=== PATIENT | female | born 1945 | race Caucasian/White ===

== ENCOUNTER 2024-01-16 14:23 | Inpatient (IN) | payer MEDICARE, OTHER ==
--- NOTE | 2024-01-16 14:55 | ED ---
Recheck HPI - General Chief Complaint: Chest Pain Stated Complaint: fall Time Seen by Provider: 01/16/24 14:31 Source: patient, EMS, RN notes reviewed, old records reviewed Mode of arrival: EMS Limitations: no limitations - History of Present Illness Initial Comments: This is a 78-year-old female who is excepted in transfer from outside facility for pneumothorax secondary to fall fall rib fractures pneumothorax MD Complaint: other (Positive chest tube right chest wall) -: hour(s) Returns Today for: persistent/worsening pain related to initial visit Symptoms Since Prior Visit: worsening pain Associated Symptoms: none Treatments Prior to Arrival: Given Pain Meds on - Related Data Home Medications Medication Instructions Recorded Confirmed Celecoxib [CeleBREX] 200 mg PO DAILY 01/16/24 01/16/24 Furosemide [Lasix] 20 mg PO DAILY 01/16/24 01/16/24 Hydroxyurea [Hydrea] 500 mg PO DAILY 01/16/24 01/16/24 Pantoprazole [Protonix] 40 mg PO DAILY 01/16/24 01/16/24 Verapamil HCl [Verapamil ER] 180 mg PO HS 01/16/24 01/16/24 predniSONE [Deltasone] 10 mg PO DAILY 01/16/24 01/16/24 Allergies Allergy/AdvReac Type Severity Reaction Status Date / Time Quinolones Allergy Rash/Hives Verified 01/16/24 17:12 Sulfa (Sulfonamide Allergy Unknown Verified 01/16/24 17:12 Antibiotics) Childhood Review of Systems ROS Statement: Those systems with pertinent positive or pertinent negative responses have been documented in the HPI. ROS Other: All systems not noted in ROS Statement are negative. Past Medical History Past Medical History: Coronary Artery Disease (CAD), GERD/Reflux, Hyperlipidemia, Hypertension, Osteoarthritis (OA) Additional Past Medical History / Comment(s): thrombocytosis, vitamin D deficiency, History of Any Multi-Drug Resistant Organisms: None Reported Past Surgical History: Hysterectomy Additional Past Surgical History / Comment(s): L breast biopsy 2014, colonoscopy 2014, bowel obstruction surgery 2007 Past Psychological History: No Psychological Hx Reported Smoking Status: Never smoker Past Alcohol Use History: Occasional Past Drug Use History: None Reported General Exam Limitations: no limitations General appearance: alert, in no apparent distress Head exam: Present: atraumatic, normocephalic, normal inspection Eye exam: Present: normal appearance, PERRL, EOMI. Absent: scleral icterus, conjunctival injection, periorbital swelling ENT exam: Present: normal exam, mucous membranes moist Neck exam: Present: normal inspection. Absent: tenderness, meningismus, lymphadenopathy Respiratory exam: Present: normal lung sounds bilaterally. Absent: respiratory distress, wheezes, rales, rhonchi, stridor Cardiovascular Exam: Present: regular rate, normal rhythm, normal heart sounds. Absent: systolic murmur, diastolic murmur, rubs, gallop, clicks GI/Abdominal exam: Present: soft, normal bowel sounds. Absent: distended, tenderness, guarding, rebound, rigid Extremities exam: Present: normal inspection, full ROM, normal capillary refill. Absent: tenderness, pedal edema, joint swelling, calf tenderness Back exam: Present: normal inspection Neurological exam: Present: alert, oriented X3, CN II-XII intact Psychiatric exam: Present: normal affect, normal mood Skin exam: Present: warm, dry, intact, normal color. Absent: rash Course Vital Signs 01/16/24 01/16/24 01/16/24 14:36 15:00 16:00 Temperature 98.0 F Pulse Rate 70 80 73 Pulse Rate [ Pulse Oximetery ] Respiratory 18 14 14 Rate Blood Pressure 156/82 156/82 143/82 Blood Pressure [Left Arm Sitting] O2 Sat by Pulse 96 98 97 Oximetry 01/16/24 01/16/24 01/16/24 17:00 18:00 20:00 Temperature Pulse Rate 71 82 81 Pulse Rate [ Pulse Oximetery ] Respiratory 14 14 16 Rate Blood Pressure 154/81 148/73 147/77 Blood Pressure [Left Arm Sitting] O2 Sat by Pulse 98 97 96 Oximetry 01/17/24 01/17/24 01/17/24 00:00 04:00 06:54 Temperature Pulse Rate 74 79 80 Pulse Rate [ Pulse Oximetery ] Respiratory 16 16 18 Rate Blood Pressure 152/80 147/75 155/82 Blood Pressure [Left Arm Sitting] O2 Sat by Pulse 93 L 94 L 97 Oximetry 01/17/24 01/17/24 01/17/24 08:12 12:45 12:53 Temperature 98.1 F Pulse Rate 88 Pulse Rate [ 101 H 100 Pulse Oximetery ] Respiratory 14 16 16 Rate Blood Pressure 159/85 Blood Pressure 179/82 170/88 [Left Arm Sitting] O2 Sat by Pulse 97 98 98 Oximetry 01/17/24 15:18 Temperature 98.1 F Pulse Rate 82 Pulse Rate [ Pulse Oximetery ] Respiratory 18 Rate Blood Pressure 138/76 Blood Pressure [Left Arm Sitting] O2 Sat by Pulse 95 Oximetry - Reevaluation(s) Reevaluation #1: 01/16/24 17:45 Medical records reviewed Reevaluation #2: 01/16/24 17:45 Patient's in no distress no shortness of breath pain is improved Reevaluation #3: 01/16/24 17:46 Patient informed of results and questions answered Reevaluation #4: Was pt. sent in by a medical professional or institution (, JULIA, INSPECTOR TESTER SORTER, urgent care, hospital, or senior living...) When possible be specific @ -no Did you speak to anyone other than the patient for history (EMS, parent, family, police, friend...)? What history was obtained from this source @ -no Did you review nursing and triage notes (agree or disagree)? Why? @ -agree Are old charts reviewed (outside hosp., previous admission, EMS record, old EKG, old radiological studies, urgent care reports/EKG's, senior living records)? Report findings @ -yes Differential Diagnosis (chest pain, altered mental status, abdominal pain women, abdominal pain men, vaginal bleeding, weakness, fever, dyspnea, syncope, headache, dizziness, GI bleed, back pain, seizure, CVA, palpatations, mental health, musculoskeletal)? @ -prior EKG interpreted by me (3pts min.). @ -yes X-rays interpreted by me (1pt min.). @ -yes positive for good placement of chest tube CT interpreted by me (1pt min.). @ -Yes negative for traumatic injury U/S interpreted by me (1pt. min.). @ -no What testing was considered but not performed or refused? (CT, X-rays, U/S, labs)? Why? @ -none What meds were considered but not given or refused? Why? @ -none Did you discuss the management of the patient with other professionals (professionals i.e. JULIA Cruz, INSPECTOR TE[employer]TER, lab, RT, psych nurse, director social service, operator specialist communications, teacher, hotel security officer, case manager specialist)? Give summary @ -no Was smoking cessation discussed for >3mins.? @ -no Was critical care preformed (if so, how long)? @ -no Were there social determinants of health that impacted care today? How? (Homelessness, low income, unemployed, alcoholism, drug addiction, transportation, low edu. Level, literacy, decrease access to med. care, prison, rehab)? @ -none Was there de-escalation of care discussed even if they declined (Discuss DNR or withdrawal of care, Hospice)? DNR status @ -no What co-morbidities impacted this encounter? (DM, HTN, Smoking, COPD, CAD, Cancer, CVA, ARF, Chemo, Hep., AIDS, mental health diagnosis, sleep apnea, morbid obesity)? @ -none Was patient admitted / discharged? Hospital course, mention meds given and route, prescriptions, significant lab abnormalities, going to OR and other pertinent info. @ - 78 female with traumatic pneumothorax, patient given chest tube and will be admitted for chest tube management admitted Undiagnosed new problem with uncertain prognosis? @ -no Drug Therapy requiring intensive monitoring for toxicity (Heparin, Nitro, Insulin, Cardizem)? @ -no Were any procedures done? @ -no Diagnosis/symptom? @ -Pneumothorax Acute, or Chronic, or Acute on Chronic? @ -Acute Uncomplicated (without systemic symptoms) or Complicated (systemic symptoms)? @ -Complicated Side effects of treatment? @ -no Exacerbation, Progression, or Severe Exacerbation? @ -exacerbation Poses a threat to life or bodily function? How? (Chest pain, USA, OR, pneumonia, PE, COPD, DKA, ARF, appy, cholecystitis, CVA, Diverticulitis, Homicidal, Suicidal, threat to staff... and all critical care pts) @ -yes with significant traumatic pneumothorax Reevaluation #5: Differential Chest Pain: Stable Angina, Unstable Angina, STEMI, NSTEMI Aortic Dissection, Pneumothorax, Musculoskeletal, Esophageal Spasm GERD, Cholecystitis, Pancreatitis, Zoster, this is not meant to be an all-inclusive list. Differential Dyspnea: Coronary syndrome, arrhythmia, tamponade, asthma, COPD, pulmonary embolism, p neumonia, pneumothorax, pulmonary effusion, anaphylaxis, diabetic ketoacidosis, flailed chest, pulmonary contusion, diaphragmatic rupture, anemia, neuromuscular, this is not meant to be an all-inclusive list. - Consultations Consultation #1: Spoke with Dr. Mauro who accepts admission to trauma Medical Decision Making - Medical Decision Making 78 female with traumatic pneumothorax, patient given chest tube and will be admitted for chest tube management - Lab Data Result diagrams: 01/18/24 08:26 01/18/24 08:26 - Radiology Data Radiology results: report reviewed (Chest x-ray shows expanded right-sided pneumothorax with chest tube CT chest 7 pelvis negative for other significant traumatic injury), image reviewed Disposition Clinical Impression: Pneumothorax, Fall, Rib fractures, Traumatic fracture of ribs of right side with pneumothorax Disposition: ADMITTED IP TO THIS [facility] Condition: Good Is patient prescribed a controlled substance at d/c from ED?: No Time of Disposition: 15:30
[2024-01-16] MEDS ORDERED: NALOXONE 0.4 MG/ML 1 ML VIAL IV PRN ×2 (15:48→15:53)
--- NOTE | 2024-01-16 15:48 | XR ---
EXAMINATION TYPE: XR chest 2V DATE OF EXAM: 01/16/2024 3:34 PM COMPARISON: 01/16/2024 CLINICAL INDICATION: Female, 78 years old with history of pigtail catheter rig ht chest placement; [facility] TECHNIQUE: XR chest 2V Frontal and lateral views of the chest. FINDINGS: Lungs/Pleura: There is no evidence of pleural effusion, focal consolidation, or pneumothorax. Pulmonary vascularity: Unremarkable. Heart/mediastinum: Cardiomediastinal silhouette is unremarkable. Musculoskeletal: No acute osseous pathology. Right chest tube without evidence for pneumothorax. IMPRESSION: Right thoracotomy tube without evidence for pneumothorax. [facility], , 01/16/2024 3:46 PM
[2024-01-16] MEDS: SODIUM CHLORIDE 0.9% 1,000 ML IV SCH (16:58)
[2024-01-16] MEDS: ONDANSETRON 4 MG/2 ML VIAL IVP PRN (18:47)
[2024-01-16] MEDS: MORPHINE SULFATE 4 MG/ML SYRINGE IV PRN (18:47)
--- NOTE | 2024-01-16 19:30 | CT ---
EXAMINATION TYPE: CT ChestAbdPelvis w con DATE OF EXAM: 01/16/2024 7:20 PM COMPARISON: None. CLINICAL INDICATION: Female, 78 years old with history of pain, TECHNIQUE: CT imaging performed with sagittal coronal reformats. CT scan of the chest, abdomen and pe lvis is performed without Oral Contrast and with IV Contrast, patient injected with 1100ml mL of Isov ue 300. CT DLP: 819.4 mGycm, Automated exposure control for dose reduction was used. FINDINGS: CT Chest: LUNGS: Sliver of a pneumothorax noted with right-sided chest tube in place. There is small amount of subcutaneous air right chest wall superiorly. Right basilar compressive atelectasis. MEDIASTINUM: Thoracic aorta is of normal caliber. The heart is not enlarged. No evidence for media stinal mass or adenopathy. HILAR STRUCTURES: No evidence for mass. No hilar adenopathy is appreciated. OTHER: No significant abnormality. CONTRAST CT ABDOMEN AND PELVIS FINDINGS: LIVER/GB: No calcified gallstones. No space occupying hepatic lesion. Biliary tree is of normal ca liber. PANCREAS: No inflammation. No distinct mass. SPLEEN: No splenic enlargement. No lesion seen. ADRENALS: Left adrenal mass measuring 2.4 cm with peripheral calcification is nonspecific. Right adre nal gland is unremarkable. KIDNEYS/BLADDER: No hydronephrosis. No nephrolithiasis. 1 cm simple cyst midpole left kidney. BOWEL: Normal appendix. Normal bowel caliber. No inflammation. Moderate to severe fecal stasis thr oughout the colon. GENITAL ORGANS: No gross abnormality. LYMPH NODES: No greater than 1cm abdominal or pelvic lymph nodes are appreciated. AORTA: No significant abnormality. OSSEOUS STRUCTURES: Multilevel degenerative disc space narrowing spondylosis. OTHER: No significant additional abnormality is seen. IMPRESSION: 1. Less than 10% right-sided pneumothorax with chest tube in place and a small amount of subcutaneous emphysema. 2. No evidence for traumatic injury to the chest abdomen or pelvis at this time. [facility], , 01/16/2024 7:27 PM
[2024-01-17 07:14] LABS: Anisocytosis Slight; Basophils % (A) 1 %; Eosinophils # (A) 0.2 k/uL (0-0.7); Eosinophils % (A) 2 %; HCT 36.9 % (34.0-46.0); HGB 11.8 gm/dL (11.4-16.0); Hypochromasia Slight; Lymphocytes # (A) 1.7 k/uL (1.0-4.8); Lymphocytes % (A) 20 %; MCHC 31.9 g/dL (31.0-37.0); MCV 100.2 fL (80.0-100.0); Macrocytosis Slight; Mean Platelet Volume 7.3; Monocytes # (A) 0.6 k/uL (0-1.0); Monocytes % (A) 7 %; Neutrophils % (A) 69 %; Platelet Count 255 k/uL (150-450); RBC 3.68 m/uL (3.80-5.40); RDW 17.8 % (11.5-15.5); WBC 8.7 k/uL (3.8-10.6)
[2024-01-17 07:28] LABS: ALT 17 U/L (4-34); AST 21 U/L (14-36); African American GFR (CKD) 79 (>60 ml/min/1.73 sqM); Albumin 3.1 g/dL (3.5-5.0); Alkaline Phosphatase 61 U/L (38-126); Anion Gap 0 mmol/L; Blood Urea Nitrogen 19 mg/dL (7-17); Calcium 8.4 mg/dL (8.4-10.2); Carbon Dioxide 28 mmol/L (22-30); Chloride 109 mmol/L (98-107); Glucose 71 mg/dL (74-99); Non-African American GFR(CKD) 68 (>60 ml/min/1.73 sqM); Sodium 137 mmol/L (137-145); Total Bilirubin 0.5 mg/dL (0.2-1.3); Total Protein 5.3 g/dL (6.3-8.2)
--- NOTE | 2024-01-17 07:46 | XR ---
EXAMINATION TYPE: XR chest 1V portable DATE OF EXAM: 01/17/2024 CLINICAL HISTORY: Difficulty breathing progress study. TECHNIQUE: Single AP portable upright view of the chest is obtained. COMPARISON: Chest x-ray from one day earlier FINDINGS: Right-sided pleural catheter is in place. No evidence for sizable pneumothorax. Cutaneous air overlies the upper right chest. The lungs are hyperinflated compatible with COPD. Cardiomediastin al silhouette is unremarkable. IMPRESSION: Overall stable findings, [facility], , 01/17/2024 7:44 AM
[2024-01-17] MEDS: HYDROXYUREA 500 MG CAP PO SCH (09:01)
[2024-01-17] MEDS: PANTOPRAZOLE 40 MG TABLET PO SCH (09:03)
[2024-01-17] MEDS: FUROSEMIDE 20 MG TAB PO SCH (09:03)
[2024-01-17] MEDS: VERAPAMIL SR 180 MG TABLET.ER PO SCH (09:03)
[2024-01-17] MEDS: MELOXICAM 7.5 MG TAB PO SCH (09:12)
[2024-01-17 09:47] LABS: Glucose,Whole Blood 79 mg/dL (70-110)
--- NOTE | 2024-01-17 09:48 | P.CONS ---
History of Present Illness - Reason for Consult Consult date: 01/17/24 Medical management Requesting physician: Nilesh Hernandez - Chief Complaint syncope/vasovagal episode - History of Present Illness History of Presenting Illness: Patient is a very pleasant 78-year-old female with a past medical history of CAD, hypertension, hyperlipidemia, and GERD. She was transferred to our facility from [facility] after reports of fall at home injuring the side of her chest. Patient states she was lying in bed and had some acid reflux and felt nauseous so got up to use the restroom because she felt as though she had to vomit but became diaphoretic falling over hitting the right side of her chest on the shelf. Patient was taken to [facility] where she underwent evaluation and was found to have a right-sided pneumothorax. A right sided chest tube was placed and patient was transferred to our facility and admitted under trauma surgery team with consults to pulmonary for management of chest tube and we were consulted for medical management throughout hospitalization. Arrival to our facility, patient underwent evaluation in the emergency department. Vital signs upon arrival show blood pressure 156/82, heart rate 70, respiratory rate 18, temp 98.0 F, and SpO2 of 96% on room air. Chest x-ray co mpleted showing right thoracotomy tube without evidence of pneumothorax. CT chest abdomen and pelvis showing less than 10% right-sided pneumothorax with chest tube in place and small amount of subcutaneous emphysema and no evidence for traumatic injury to the chest, abdomen, or pelvis at this time. Review of systems: Pertinent positives and negatives as discussed in HPI, a complete review of sy stems was performed and all other systems are negative. Physical exam: Vital signs reviewed and stable. General: Nontoxic, no distress and appears stated age. Derm: Skin warm and dry, normal coloration for ethnicity. Head: Atraumatic, normocephalic and symmetric. Eyes: EOM's intact, no lid lag, and anicteric sclera Mouth: no lip lesions, mucus membranes moist Cardiovascular: regular rate and rhythm with normal S1S2, no murmur, positive posterior tibial pulses bilaterally, and cap refill < 2 seconds. Right sided small bore chest tube in place. Lungs: Respirations even, regular, and unlabored on room air. Lungs CTA bilaterally, no rhonchi, no rales, no wheezing, and no accessory muscle usage. Abdominal: soft, nontender to palpation, no guarding, no appreciable organomegaly Ext: ROM intact. No gross muscle atrophy, no edema, no contractures Neuro: Speech clear, face symmetrical and CN II-XII grossly intact with no noted focal neuro deficits Psych: Alert and oriented to person, place, time, and situation. Appropriate and pleasant affect. Assessment and Plan of Care: Vasovagal episode versus syncope -Initially patient presentation appears to be secondary to vasovagal episode, however patient's daughters later notifying staff that patient has had 4 episodes of syncope and was evaluated by Dr. Ly where she underwent event monitor and was called twice for an abnormal rhythm, patient and family unsure of what the rhythm was. -Patient to remain on telemetry monitoring. -Consult placed to cardiology for evaluation secondary to reports of recurrent syncopal episodes. -Fall precautions to be maintained. Pneumothorax, right-sided -Pulmonology following managing chest tube. -Repeat morning chest x-ray showing overall stable examination with right pleural catheter in place with no sizable pneumothorax. -Encourage use of incentive spirometer 10-15 times hourly while awake. CAD Hypertension Hyperlipidemia -Continue daily medication regimen with Lasix 20 mg daily and verapamil 180 mg nightly. GERD -Continue daily medication regimen with Protonix 40 mg daily. History of bone marrow cancer -Continue hydroxyurea 500 mg daily. Data and imaging reviewed: -As stated above Thank you for allowing us to participate in the care of this pleasant patient. Do not hesitate to contact us with questions. Someone can be [facility] all hours of the day at [phone] or via [employer]. Patient was seen independently by Nurse Practitioner. This document was prepared using [employer] dictation software. Please allow for errors in motors and generators inspector while rare they do occur. Shan Dhaliwal NP rendered care for this patient independently, reviewed the findings and plan as documented in the note above and agree with plan. I did n ot physically speak with or examine the patient on this date. Past Medical History Past Medical History: Coronary Artery Disease (CAD), GERD/Reflux, Hyperlipidemia, Hypertension, Osteoarthritis (OA) Additional Past Medical History / Comment(s): thrombocytosis, vitamin D deficiency, History of Any Multi-Drug Resistant Organisms: None Reported Past Surgical History: Hysterectomy Additional Past Surgical History / Comment(s): L breast biopsy 2014, colonoscopy 2014, bowel obstruction surgery 2007 Past Psychological History: No Psychological Hx Reported Smoking Status: Never smoker Past Alcohol Use History: Occasional Past Drug Use History: None Reported Medications and Allergies Home Medications Medication Instructions Recorded Confirmed Type Celecoxib [CeleBREX] 200 mg PO DAILY 01/16/24 01/16/24 History Furosemide [Lasix] 20 mg PO DAILY 01/16/24 01/16/24 History Hydroxyurea [Hydrea] 500 mg PO DAILY 01/16/24 01/16/24 History Pantoprazole [Protonix] 40 mg PO DAILY 01/16/24 01/16/24 History Verapamil HCl [Verapamil ER] 180 mg PO HS 01/16/24 01/16/24 History predniSONE [Deltasone] 10 mg PO DAILY 01/16/24 01/16/24 History Allergies Allergy/AdvReac Type Severity Reaction Status Date / Time Quinolones Allergy Rash/Hives Verified 01/16/24 17:12 Sulfa (Sulfonamide Allergy Unknown Verified 01/16/24 17:12 Antibiotics) Childhood Physical Exam Vitals: Vital Signs Temp Pulse Resp BP Pulse Ox 01/17/24 06:54 80 18 155/82 97 01/17/24 04:00 79 16 147/75 94 L 01/17/24 00:00 74 16 152/80 93 L 01/16/24 20:00 81 16 147/77 96 01/16/24 18:00 82 14 148/73 97 01/16/24 17:00 71 14 154/81 98 01/16/24 16:00 73 14 143/82 97 01/16/24 15:00 80 14 156/82 98 01/16/24 14:36 98.0 F 70 18 156/82 96 Results CBC & Chem 7: 01/17/24 06:52 01/17/24 06:52 Labs: Abnormal Lab Results - Last 24 Hours (Table) 01/17/24 Range/Units 06:52 RBC 3.68 L (3.80-5.40) m/uL MCV 100.2 H (80.0-100.0) fL RDW 17.8 H (11.5-15.5) %
[2024-01-17] MEDS: DEXTROSE 50% SYRINGE 50 ML IVP STA (10:32)
[2024-01-17] MEDS ORDERED: HYDROcodone/APAP 5-325MG 1 EACH TAB PO PRN (11:31)
--- NOTE | 2024-01-17 11:33 | P.GSHP ---
History of Present Illness H&P Date: 01/17/24 CHIEF COMPLAINT: Syncopal episode with fall and pneumothorax HISTORY OF PRESENT ILLNESS: This is a 78-year-old female who was a transfer from [place] to be evaluated by trauma service in regards to right traumatic pneumothorax. Patient had a syncopal episode in her bathroom. Patient reports that she was in the bathroom felt nauseous and thought she was going to be sick and passed out. She fell landing on the right side of her ribs. She is unsure of what she hit the right rib cage on. She was passed out for a few seconds. But did have severe right-sided rib/chest pain. She was found to have evidence of a right-sided pneumothorax at [place] and did require a chest tube to be placed. CT scan of chest abdomen and pelvis reported less than 10% right-sided pneumothorax with chest tube in place and a small amount of subcutaneous emphysema. No evidence for traumatic injury to the chest abdomen or pelvis per CT. Patient reports having significant pain. The morphine does help. She denies any new areas of pain. She denies being on any blood thinners. PAST MEDICAL HISTORY: See below PAST SURGICAL HISTORY: See below MEDICATIONS: See below ALLERGIES: See below SOCIAL HISTORY: No illicit drug use. REVIEW OF SYSTEMS: CONSTITUTIONAL: Denies fever or chills. HEENT: Denies blurred vision, vision changes, or eye pain. Denies hemoptysis CARDIOVASCULAR: Denies chest pain or pressure. RESPIRATORY: No shortness of breath. GASTROINTESTINAL: See HPI for pertinent findings HEMATOLOGIC: Denies bleeding disorders. GENITOURINARY: Denies any blood in urine or increased urinary frequency. SKIN: Denies pruitis. Denies rash. PHYSICAL EXAM: VITAL SIGNS: Reviewed GENERAL: Well-developed in no acute distress. HEENT: No sclera icterus. Extraocular movements grossly intact. Moist buccal mucosa. Head is atraumatic, normocephalic. No nasal drainage. Chest: No use of american indian policy specialist muscles. On room air. Chest tube noted on the right side of the chest. There is some bruising noted. ABDOMEN: Soft. Nondistended. Nontender NEUROLOGIC: Alert and oriented. Cranial nerves II through XII grossly intact. Extremities: Able to move all 4 extremities LABORATORY DATA: WBC 8.7 Hgb 11.8 platelets 255 Sodium 137 potassium 4.0 creatinine 0.82 IMAGING: CT scan chest abdomen pelvis reports less than a 10% right-sided pneumothorax with chest tube in place and a small amount of subcutaneous emphysema. No evidence for traumatic injury to chest abdomen or pelvis. Chest x-ray for this morning reports stable findings. No evidence for sizable pneumothorax. Cutaneous air overlies right upper chest. ASSESSMENT: 1. Syncopal episode with fall and right sided traumatic pneumothorax. Status post chest tube placement PLAN: -Encourage patient to use incentive spirometer -pulmonary service consulted for pneumothorax and chest tube management -Medical service consulted for medical management -Pain service on consult -Add [place] for pain management -Service Protonix and DVT prophylaxis subcu heparin Physician Neon Installer note has been reviewed by physician. Signing provider agrees with the documented findings, assessment, and plan of care. I have personally seen and examined the patient, reviewed the CLIENT RELATION SPECIALIST /PAs history, exam and MDM and agree with the assessment and plan as written. Based on total visit time, I have performed more than 50% of the visit. As above: Studies from outside institution noted. Chest tube in good position. Pneumothorax no longer present on follow-up imaging. Keep tube in place for today. Possible removal tomorrow. Past Medical History Past Medical History: Coronary Artery Disease (CAD), GERD/Reflux, Hyperlipidemia, Hypertension, Osteoarthritis (OA) Additional Past Medical History / Comment(s): thrombocytosis, vitamin D deficiency, History of Any Multi-Drug Resistant Organisms: None Reported Past Surgical History: Hysterectomy Additional Past Surgical History / Comment(s): L breast biopsy 2014, colonoscopy 2014, bowel obstruction surgery 2007 Past Psychological History: No Psychological Hx Reported Smoking Status: Never smoker Past Alcohol Use History: Occasional Past Drug Use History: None Reported Medications and Allergies Home Medications Medication Instructions Recorded Confirmed Type Celecoxib [CeleBREX] 200 mg PO DAILY 01/16/24 01/16/24 History Furosemide [Lasix] 20 mg PO DAILY 01/16/24 01/16/24 History Hydroxyurea [Hydrea] 500 mg PO DAILY 01/16/24 01/16/24 History Pantoprazole [Protonix] 40 mg PO DAILY 01/16/24 01/16/24 History Verapamil HCl [Verapamil ER] 180 mg PO HS 01/16/24 01/16/24 History predniSONE [Deltasone] 10 mg PO DAILY 01/16/24 01/16/24 History Allergies Allergy/AdvReac Type Severity Reaction Status Date / Time Quinolones Allergy Rash/Hives Verified 01/16/24 17:12 Sulfa (Sulfonamide Allergy Unknown Verified 01/16/24 17:12 Antibiotics) Childhood Surgical - Exam Vital Signs Temp Pulse Resp BP Pulse Ox 98.0 F 70 18 156/82 96 01/16/24 14:36 01/16/24 14:36 01/16/24 14:36 01/16/24 14:36 01/16/24 14:36 Results - Labs 01/17/24 06:52 01/17/24 06:52 Abnormal Lab Results - Last 24 Hours (Table) 01/17/24 01/17/24 Range/Units 06:52 06:52 RBC 3.68 L (3.80-5.40) m/uL MCV 100.2 H (80.0-100.0) fL RDW 17.8 H (11.5-15.5) % Chloride 109 H (98-107) mmol/L BUN 19 H (7-17) mg/dL Glucose 71 L (74-99) mg/dL Total Protein 5.3 L (6.3-8.2) g/dL Albumin 3.1 L (3.5-5.0) g/dL Diabetes panel 01/17/24 Range/Units 06:52 Sodium 137 (137-145) mmol/L Potassium 4.0 (3.5-5.1) mmol/L Chloride 109 H (98-107) mmol/L Carbon Dioxide 28 (22-30) mmol/L BUN 19 H (7-17) mg/dL Creatinine 0.82 (0.52-1.04) mg/dL Glucose 71 L (74-99) mg/dL Calcium 8.4 (8.4-10.2) mg/dL AST 21 (14-36) U/L ALT 17 (4-34) U/L Alkaline Phosphatase 61 (38-126) U/L Total Protein 5.3 L (6.3-8.2) g/dL Albumin 3.1 L (3.5-5.0) g/dL Calcium panel 01/17/24 Range/Units 06:52 Calcium 8.4 (8.4-10.2) mg/dL Albumin 3.1 L (3.5-5.0) g/dL Pituitary panel 01/17/24 Range/Units 06:52 Sodium 137 (137-145) mmol/L Potassium 4.0 (3.5-5.1) mmol/L Chloride 109 H (98-107) mmol/L Carbon Dioxide 28 (22-30) mmol/L BUN 19 H (7-17) mg/dL Creatinine 0.82 (0.52-1.04) mg/dL Glucose 71 L (74-99) mg/dL Calcium 8.4 (8.4-10.2) mg/dL Adrenal panel 01/17/24 Range/Units 06:52 Sodium 137 (137-145) mmol/L Potassium 4.0 (3.5-5.1) mmol/L Chloride 109 H (98-107) mmol/L Carbon Dioxide 28 (22-30) mmol/L BUN 19 H (7-17) mg/dL Creatinine 0.82 (0.52-1.04) mg/dL Glucose 71 L (74-99) mg/dL Calcium 8.4 (8.4-10.2) mg/dL Total Bilirubin 0.5 (0.2-1.3) mg/dL AST 21 (14-36) U/L ALT 17 (4-34) U/L Alkaline Phosphatase 61 (38-126) U/L Total Protein 5.3 L (6.3-8.2) g/dL Albumin 3.1 L (3.5-5.0) g/dL
--- NOTE | 2024-01-17 12:27 | XR ---
EXAMINATION TYPE: XR chest 1V portable DATE OF EXAM: 01/17/2024 12:22 PM COMPARISON: Chest radiographs from 01/17/2024, CT chest abdomen pelvis 01/16/2024 TECHNIQUE: XR chest 1V portable Portable AP radiograph of the chest. CLINICAL INDICATION:Female, 78 years old with history of Pneumothorax, right; FINDINGS: Lungs/Pleura: There is no evidence of pleural effusion or focal consolidation. No sizable pneumothora x. Bibasilar subsegmental atelectasis. Pulmonary vascularity: Unremarkable. Heart/mediastinum: Cardiomediastinal silhouette is unremarkable. Musculoskeletal: Multiple level degenerative disc disease changes seen throughout the spine. Other findings: None Lines/Tubes: Right-sided pleural catheter in place. IMPRESSION: Overall stable examination with right pleural catheter in place. No sizable pneumothorax. [facility], , 01/17/2024 12:25 PM
--- NOTE | 2024-01-17 12:41 | P.CNPUL ---
History of Present Illness Consult date: 01/17/24 Requesting physician: Nilesh Hernandez Reason for consult: dyspnea, chest pain, pneumothorax, abnormal CXR/CT Chief complaint: Status post fall, pneumothorax. History of present illness: Pulmonary consult dated January 17, 2024. 78-year-old female who was seen in the emergency department, room 1. The patient was transferred down from [facility]. She apparently fell at home, injuring her right chest area. She went to the hospital, was found to have a pneumothorax, and the patient had a small bore chest tube placed and, with a Heimlich valve. We are asked to see the patient. The patient is doing relatively well. She is on room air. She does have a history of hypertension, acid reflux disease, arthritis, and bone marrow cancer. A small bore right- sided chest tube was noted, connected to a Heimlich valve. The patient had a repeat chest x-ray in July, showing a small right apical pneumothorax. The patient is pretty much asymptomatic. White count 8.7, hemoglobin 11.8, macro 36.9, platelet count 2 55,000. Sodium 137, potassium 4, chlorides 109, CO2 28, BUN 19, creatinine 0.82. Glucose is 79. Albumin 3.1. Chest x-ray from earlier today, CT scan, and more recent chest x-ray, done at noon, are reviewed. Review of Systems REVIEW OF SYSTEMS: CONSTITUTIONAL: [Negative.] NEUROLOGIC: [ Negative.] HEENT: [ Negative.] CARDIAC: [Negative.] PULMONARY: Right chest discomfort. GI: [Negative.] : [Negative.] RHEUMATOLOGIC: [ Negative.] IMMUNOLOGIC: [ Negative.] ENDOCRINE: [Negative. ] DERMATOLOGIC: [Negative.] Past Medical History Past Medical History: Coronary Artery Disease (CAD), GERD/Reflux, Hyperlipidemia, Hypertension, Osteoarthritis (OA) Additional Past Medical History / Comment(s): thrombocytosis, vitamin D deficiency, History of Any Multi-Drug Resistant Organisms: None Reported Past Surgical History: Hysterectomy Additional Past Surgical History / Comment(s): L breast biopsy 2014, colonoscopy 2014, bowel obstruction surgery 2007 Past Psychological History: No Psychological Hx Reported Smoking Status: Never smoker Past Alcohol Use History: Occasional Past Drug Use History: None Reported Medications and Allergies Home Medications Medication Instructions Recorded Confirmed Type Celecoxib [CeleBREX] 200 mg PO DAILY 01/16/24 01/16/24 History Furosemide [Lasix] 20 mg PO DAILY 01/16/24 01/16/24 History Hydroxyurea [Hydrea] 500 mg PO DAILY 01/16/24 01/16/24 History Pantoprazole [Protonix] 40 mg PO DAILY 01/16/24 01/16/24 History Verapamil HCl [Verapamil ER] 180 mg PO HS 01/16/24 01/16/24 History predniSONE [Deltasone] 10 mg PO DAILY 01/16/24 01/16/24 History Allergies Allergy/AdvReac Type Severity Reaction Status Date / Time Quinolones Allergy Rash/Hives Verified 01/16/24 17:12 Sulfa (Sulfonamide Allergy Unknown Verified 01/16/24 17:12 Antibiotics) Childhood Physical Exam Osteopathic Statement: *. No significant issues noted on an osteopathic structural exam other than those noted in the History and Physical/Consult. Vitals: Vital Signs Temp Pulse Resp BP Pulse Ox 01/17/24 08:12 98.1 F 88 14 159/85 97 01/17/24 06:54 80 18 155/82 97 01/17/24 04:00 79 16 147/75 94 L 01/17/24 00:00 74 16 152/80 93 L 01/16/24 20:00 81 16 147/77 96 01/16/24 18:00 82 14 148/73 97 01/16/24 17:00 71 14 154/81 98 01/16/24 16:00 73 14 143/82 97 01/16/24 15:00 80 14 156/82 98 01/16/24 14:36 98.0 F 70 18 156/82 96 No acute distress, oriented 3. Currently on room air. HEENT examination is grossly unremarkable. Mucous membranes are moist. No oral lesions. Neck supple. Full range of motion. No adenopathy thyromegaly or neck vein distention. Cardiovascular examination reveals regular rhythm rate. S1-S2 normal. No S3 or S4. No discernible murmur noted. Lungs reveal clear breath sounds. Breath sounds are equal bilaterally. No adventitious lung sounds including wheezes rhonchi or crackles. Small bore right sided chest tube was noted, connected to Heimlich valve. Abdomen soft bowel sounds are heard. No masses or tenderness. Extremities are intact. No cyanosis clubbing or edema. Skin is without rash or lesion. Neurologic examination is brief but nonfocal. Results - Laboratory Findings CBC and BMP: 01/17/24 06:52 01/17/24 06:52 Abnormal lab findings: Abnormal Labs 01/17/24 01/17/24 06:52 06:52 RBC 3.68 L MCV 100.2 H RDW 17.8 H Chloride 109 H BUN 19 H Glucose 71 L Total Protein 5.3 L Albumin 3.1 L - Diagnostic Findings Chest x-ray: image reviewed CT scan - chest: image reviewed Assessment and Plan Assessment: S/P fall, with right sided pneumothorax, S/P smallbore chest tube placement, connected to a Heimlich valve. History of hypertension. History of degenerative joint disease. History of GERD. History of bone cancer. Plan: Plan dated January 17, 2024. The patient is seen today and ER, room #1. The patient has a small bore chest tube placed, on the right side. It is connected to a Heimlich valve. Clinically, the patient appears relatively stable. She is on room air. Repeat chest x-ray will be done at noon. Additional recommendations and suggestions are forthcoming. Labs, x-rays, and all medications are reviewed. Prognosis is thought to be generally good. Time with Patient: Greater than 30
--- NOTE | 2024-01-17 12:58 | P.PCN ---
Description of Procedure: Preprocedure diagnosis. Right chest wall pain. Postprocedure diagnosis. As above. Procedure done. Right erector spine block with local anesthetics under ultrasound guidance. Blood loss. None. Indication. I was consulted by ER physician for pain control of this 78-year-old lady who had a fall pneumothorax, chest tube put in. Significant pain, inadequate control in the right chest area. On physical examination significant tenderness near the posterior angle of the ribs 10 and 11 on the right side area. Discussed the procedure, alternatives, possible complications which may include infection bleeding, nerve damage, pneumothorax. Patient understands and all questions were answered. Procedure note. After getting consent patient in sitting position back prepped with chlorhexidine and draped in sterile fashion most tender point levels identified which is around T10-T11 level. With ultrasound ribs, transverse process of T10 was identified with ultrasound, straight probe. 21-gauge pejunk needle attached to a syringe was introduced under sound guidance. Negative aspiration, with aliquots of 5 cc, in between negative aspiration, total 20 cc of 0.5% ropivacaine mixed with 5 mg of dexamethasone given. paJunk needle was taken out. Band-Aid was placed at the puncture site. Disposition. Patient tolerated the procedure well. No complication. Already has started to get improvement of her pain. Patient's care was handed over in ER.
[2024-01-17 13:34] LABS: Glucose,Whole Blood 95 mg/dL (70-110)
[2024-01-17 16:56] VITALS: RESP 16
[2024-01-17] MEDS: HEPARIN SODIUM,PORCINE 5,000 UNIT/ML 1 ML VIAL SQ SCH (21:05)
--- NOTE | 2024-01-18 07:51 | XR ---
EXAMINATION TYPE: XR chest 1V portable DATE OF EXAM: 01/18/2024 COMPARISON: 01/17/2024 HISTORY: Pneumothorax TECHNIQUE: Single frontal view of the chest is obtained. FINDINGS: There is a pleural space pigtail catheter in the right lung unchanged in position. There is no pneumo thorax. The lungs are clear. There is no pleural effusion. The heart and pulmonary vasculature are normal. The osseous structures are intact IMPRESSION: No change in the pleural catheter on the right. There is no pneumothorax. There is no ac [place] cardiopulmonary disease. [facility], , 01/18/2024 7:48 AM
[2024-01-18 08:32] VITALS: BP 159/78; PULSE 93; TEMP 98.3
[2024-01-18 09:17] LABS: Anisocytosis Slight; HGB 12.7 gm/dL (11.4-16.0); Hypochromasia Slight; MCH 31.2 pg (25.0-35.0); MCHC 30.9 g/dL (31.0-37.0); MCV 100.9 fL (80.0-100.0); Macrocytosis Slight; Mean Platelet Volume 7.5; Platelet Count 308 k/uL (150-450); RBC 4.06 m/uL (3.80-5.40); RDW 17.3 % (11.5-15.5); WBC 14.2 k/uL (3.8-10.6)
[2024-01-18 09:29] LABS: African American GFR (CKD) 73 (>60 ml/min/1.73 sqM); Anion Gap 9 mmol/L; Blood Urea Nitrogen 26 mg/dL (7-17); Calcium 9.6 mg/dL (8.4-10.2); Carbon Dioxide 27 mmol/L (22-30); Chloride 103 mmol/L (98-107); Glucose 195 mg/dL (74-99); Magnesium 2.3 mg/dL (1.6-2.3); Non-African American GFR(CKD) 64 (>60 ml/min/1.73 sqM); Sodium 139 mmol/L (137-145)
--- NOTE | 2024-01-18 10:41 | XR ---
EXAMINATION TYPE: XR chest 2V DATE OF EXAM: 01/18/2024 CLINICAL HISTORY: Post chest tube removal TECHNIQUE: Frontal and lateral views of the chest are obtained. COMPARISON: Same day FINDINGS: Right-sided chest tube has been removed. Sizable pneumothorax is not visible. Scattered sen escent parenchymal changes noted. There is no focal air space opacity, pleural effusion, or pneumotho rax seen. The cardiac silhouette size is within normal limits. The osseous structures are intact. IMPRESSION: Right-sided chest tube has been removed. Sizable pneumothorax is not visible. [facility], , 01/18/2024 10:38 AM
--- NOTE | 2024-01-18 10:42 | P.PN ---
Subjective Progress Note Date: 01/18/24 Principal diagnosis: Chest trauma. Pulmonary consult dated January 17, 2024. 78-year-old female who was seen in the emergency department, room 1. The patient was transferred down from [facility], [place]. She apparently fell at home, injuring her right chest area. She went to the hospital, was found to have a pneumothorax, and the patient had a small bore chest tube placed and, with a Heimlich valve. We are asked to see the patient. The patient is doing relatively well. She is on room air. She does have a history of hypertension, acid reflux disease, arthritis, and bone marrow cancer. A small bore right- sided chest tube was noted, connected to a Heimlich valve. The patient had a repeat chest x-ray in July, showing a small right apical pneumothorax. The pat ient is pretty much asymptomatic. White count 8.7, hemoglobin 11.8, macro 36.9, platelet count 2 55,000. Sodium 137, potassium 4, chlorides 109, CO2 28, BUN 19, creatinine 0.82. Glucose is 79. Albumin 3.1. Chest x-ray from earlier today, CT scan, and more recent chest x-ray, done at noon, are reviewed. Progress note dated January 18, 2024. The patient is seen today in room 352. She is on room air. No IV fluids. The chest x-ray this morning, showed no evidence of a right sided pneumothorax. Her small pigtail catheter has been removed. A repeat chest x-ray was ordered. Clinically, the patient is stable, and wishes to be discharged. Current laboratory data includes a white count 14.2, hemoglobin 12.7, macro 41, and a platelet count of 208,000. Sodium 139, potassium 4, chlorides 103, CO2 27, BUN 26, and creatinine 0.87. Glucose is 195. Objective - Vital Signs Vital signs: Vital Signs Temp 98.3 F 01/18/24 08:31 Pulse 93 01/18/24 08:35 Resp 16 01/18/24 08:35 BP 159/78 01/18/24 08:31 Pulse Ox 99 01/18/24 08:31 FiO2 Intake & Output 01/17/24 01/18/24 01/18/24 18:59 06:59 18:59 Intake Total 118 120 Output Total 0 Balance 118 120 Weight 60.328 kg 60 kg Intake: Oral 118 120 Output: Gastric Drainage 0 Urine 0 Stool 0 Urine/Stool Mix 0 Emesis 0 Oral Regurgitation 0 Other 0 Other: Voiding Method Toilet Toilet # Voids 1 2 0 # Bowel Movements 0 - Exam No acute distress, oriented 3. HEENT examination is grossly unremarkable. Mucous membranes are moist. No oral lesions. Neck supple. Full range of motion. No adenopathy thyromegaly or neck vein distention. Cardiovascular examination reveals regular rhythm rate. S1-S2 normal. No S3 or S4. No discernible murmur noted. Lungs reveal clear breath sounds. Breath sounds are equal bilaterally. No adventitious lung sounds including wheezes rhonchi or crackles. Abdomen soft bowel sounds are heard. No masses or tenderness. Extremities are intact. No cyanosis clubbing or edema. Skin is without rash or lesion. Neurologic examination is brief but nonfocal. - Labs CBC & Chem 7: 01/18/24 08:26 01/18/24 08:26 Labs: Abnormal Lab Results - Last 24 Hours (Table) 01/18/24 01/18/24 Range/Units 08:26 08:26 WBC 14.2 H (3.8-10.6) k/uL MCV 100.9 H (80.0-100.0) fL MCHC 30.9 L (31.0-37.0) g/dL RDW 17.3 H (11.5-15.5) % BUN 26 H (7-17) mg/dL Glucose 195 H (74-99) mg/dL Assessment and Plan Assessment: S/P fall, with right sided pneumothorax, S/P smallbore chest tube placement, connected to a Heimlich valve. History of hypertension. History of degenerative joint disease. History of GERD. History of bone cancer. Plan: Plan dated January 17, 2024. The patient is seen today and ER, room #1. The patient has a small bore chest tube placed, on the right side. It is connected to a Heimlich valve. Clinically, the patient appears relatively stable. She is on room air. Repeat chest x-ray will be done at noon. Additional recommendations and suggestions are forthcoming. Labs, x-rays, and all medications are reviewed. Prognosis is thought to be generally good. Plan dated January 18, 2024. This morning's chest x-ray did not reveal pneumothorax. The pigtail catheter on the right side has been removed. The removal was uneventful. Repeat chest x- ray is ordered. If the chest x-ray does not show pneumothorax, the patient can be discharged. No follow-up is necessary. We will continue to follow patient, should she not be discharged. Labs, x-rays, and all medications are reviewed. Dictation was produced using [employer] dictation software. Please excuse any grammatical, word or spelling errors. Time with Patient: Less than 30
--- NOTE | 2024-01-18 10:51 | P.DS ---
Providers Date of admission: 01/16/24 15:49 Expected date of discharge: 01/18/24 Attending physician: Nilesh Hernandez Consults: 01/16/24 15:48 Consult Physician Routine Consulting Provider: Justin Contreras Consult Reason/Comments: ptx,chest tube Do you want consulting provider notified?: Yes 01/16/24 15:49 Consult Physician Routine Consulting Provider: Joy Pineda Consult Reason/Comments: medmanage Do you want consulting provider notified?: Yes 01/16/24 15:54 Consult Physician Routine Consulting Provider: [facility] Consult Reason/Comments: Pulmonary Contusion Do you want consulting provider notified?: Yes 01/17/24 17:17 Consult Physician Routine Consulting Provider: Nilo Warner Consult Reason/Comments: syncope follows Dr. Foley and has hx of abnormal finding on event monitor Do you want consulting provider notified?: Yes Primary care physician: Yanna Mccormack MD Hospital Course: Patient was transferred to our hospital because of pneumothorax after fall. No obvious rib fractures. She is doing well today. She is very anxious to go home today. On arrival patient had a thoracostomy tube in place. This was removed today. Repeat chest x-ray shows no pneumothorax. She is been cleared for discharge by pulmonary. They are not recommending follow-up chest x-ray. Will plan discharge. Recommend follow-up with her primary care team. Patient Condition at Discharge: Good Plan - Discharge Summary Discharge Rx Participant: No New Discharge Prescriptions: No Action Verapamil HCl [Verapamil ER] 180 mg PO HS Pantoprazole [Protonix] 40 mg PO DAILY Furosemide [Lasix] 20 mg PO DAILY Celecoxib [CeleBREX] 200 mg PO DAILY predniSONE [Deltasone] 10 mg PO DAILY Hydroxyurea [Hydrea] 500 mg PO DAILY Discharge Medication List Celecoxib [CeleBREX] 200 mg PO DAILY 01/16/24 [History] Furosemide [Lasix] 20 mg PO DAILY 01/16/24 [History] Hydroxyurea [Hydrea] 500 mg PO DAILY 01/16/24 [History] Pantoprazole [Protonix] 40 mg PO DAILY 01/16/24 [History] Verapamil HCl [Verapamil ER] 180 mg PO HS 01/16/24 [History] predniSONE [Deltasone] 10 mg PO DAILY 01/16/24 [History] Follow up Appointment(s)/Referral(s): Patrica,Santo, MD [REFERRING] - 1-2 days
--- NOTE | 2024-01-18 12:36 | P.PN ---
Subjective Progress Note Date: 01/18/24 Hospital course: Patient is a very pleasant 78-year-old female with a past medical history of CAD, hypertension, hyperlipidemia, and GERD. She was transferred to our facility from [facility] after reports of fall at home injuring the side of her chest. Patient states she was lying in bed and had some acid reflux and felt nauseous so got up to use the restroom because she felt as though she had to vomit but became diaphoretic falling over hitting the right side of her chest on the shelf. Patient was taken to [facility] where she underwent evaluation and was found to have a right-sided pneumothorax. A right sided chest tube was placed and patient was transferred to our facility and admitted under trauma surgery team with consults to pulmonary for management of chest tube and we were consulted for medical management throughout hospitalization. Arrival to our facility, patient underwent evaluation in the emergency department. Vital signs upon arrival show blood pressure 156/82, heart rate 70, respiratory rate 18, temp 98.0 F, and SpO2 of 96% on room air. Chest x-ray completed showing right thoracotomy tube without evidence of pneumothorax. CT chest abdomen and pelvis showing less than 10% right-sided pneumothorax with chest tube in place and small amount of subcutaneous emphysema and no evidence for traumatic injury to the chest, abdomen, or pelvis at this time. Physical exam: Patient seen and fully evaluated at bedside. Chest tube/pigtail catheter was removed and patient going down for chest x-ray. Patient's family at bedside. Discussed with patient and family members at bedside that secondary to this being patient's fourth reported syncopal episode that it is strongly recommended to be evaluated by cardiology, patient states "trauma doctor told me if my x-ra y is good I can go home and I am going home and will follow-up with Dr. Ly myself". This was also discussed with nursing staff. Again from medical perspective, recommend evaluation by cardiology for syncopal episode as patient reports 2 separate calls for abnormal heart rhythms while wearing event monitor due to previous syncopal episodes and states she is unaware of what the rhythm was only that they called her to ask her if she was okay. Vital signs reviewed and stable. General: Nontoxic, no distress and appears stated age. Derm: Skin warm and dry, normal coloration for ethnicity. Head: Atraumatic, normocephalic and symmetric. Eyes: EOM's intact, no lid lag, and anicteric sclera Mouth: no lip lesions, mucus membranes moist Cardiovascular: regular rate and rhythm with normal S1S2, no murmur, positive posterior tibial pulses bilaterally, and cap refill < 2 seconds. Right sided small bore chest tube/pigtail catheter in place. Lungs: Respirations even, regular, and unlabored on room air. Lungs CTA bilaterally, no rhonchi, no rales, no wheezing, and no accessory muscle usage. Abdominal: soft, nontender to palpation, no guarding, no appreciable organomegaly Ext: ROM intact. No gross muscle atrophy, no edema, no contractures Neuro: Speech clear, face symmetrical and CN II-XII grossly intact with no noted focal neuro deficits Psych: Alert and oriented to person, place, time, and situation. Appropriate and pleasant affect. Assessment and Plan of Care: Vasovagal episode versus syncope -Initially patient presentation appears to be secondary to vasovagal episode, however patient's daughters later notifying staff that patient has had 4 episodes of syncope and was evaluated by Dr. Ly where she underwent event monitor and was called twice for an abnormal rhythm, patient and family unsure of what the rhythm was. -Patient to remain on telemetry monitoring. -Cardiology was consulted for evaluation secondary to reports of recurrent syncopal episodes. -Fall precautions to be maintained. Pneumothorax, right-sided -Pulmonology following managing chest tube. -Repeat morning chest x-ray showing overall stable examination with right pleural catheter in place with no sizable pneumothorax. -Encourage use of incentive spirometer 10-15 times hourly while awake. -Pain management was consulted and discussed case with Dr. Huang who took patient for right sided right erector spine block with local anesthetics under ultrasound guidance. CAD Hypertension Hyperlipidemia -Continue daily medication regimen with Lasix 20 mg daily and verapamil 180 mg nightly. GERD -Continue daily medication regimen with Protonix 40 mg daily. History of bone marrow cancer -Continue hydroxyurea 500 mg daily. Data and imaging reviewed: -Morning labs reviewed. CBC showing leukocytosis with WBC count of 14.2 and macrocytosis with MCV of 100.9. BMP showing prerenal azotemia with BUN of 26. Blood glucose 195. Magnesium 2.3. Discussed with patient and family members at bedside that secondary to this being patient's fourth reported syncopal episode that it is strongly recommended to be evaluated by cardiology, patient states "trauma doctor told me if my x- ray is good I can go home and I am going home and will follow-up with Dr. Ly myself". This was also discussed with nursing staff. Again from medical perspective, recommend evaluation by cardiology for syncopal episode as patient reports 2 separate calls for abnormal heart rhythms while wearing event monitor due to previous syncopal episodes and states she is unaware of what the rhythm was only that they called her to ask her if she was okay. Thank you for allowing us to participate in the care of this pleasant patient. Do not hesitate to contact us with questions. Someone can be reached from the [facility] hospitalist group all hours of the day at [phone] or via [employer]. Patient was seen independently by Nurse Practitioner. This document was prepared using [employer] dictation software. Please allow for errors in mother helper while rare they do occur. Shan Dhaliwal NP rendered care for this patient independently, reviewed the findings and plan as documented in the note above and agree with plan. I did not physically speak with or examine the patient on this date. Objective - Vital Signs Vital signs: Vital Signs Temp 98.1 F 01/18/24 04:00 Pulse 75 01/18/24 04:00 Resp 16 01/18/24 04:00 BP 152/77 01/18/24 04:00 Pulse Ox 95 01/18/24 04:00 FiO2 Intake & Output 01/17/24 01/18/24 01/18/24 18:59 06:59 18:59 Intake Total 118 Balance 118 Weight 60.328 kg 60 kg Intake: Oral 118 Other: Voiding Method Toilet # Voids 1 2 - Labs CBC & Chem 7: 01/18/24 08:26 01/18/24 08:26
== END 2024-01-18 11:23 | disposition home health service (06) | DRG 201 ==
LOC: SUPCPDRO 14:23 → EC 14:23 → 3SCARD 15:49
PROVIDERS: ADMIT Surgery; ATTEND Surgery
PROC: 3E0R3BZ Introduction of Anesthetic Agent into Spinal Canal, Percutaneous Approach (ICD-10-PCS; principal; 2024-01-17)
PROC: 3E0R33Z Introduction of Anti-inflammatory into Spinal Canal, Percutaneous Approach (ICD-10-PCS; principal; 2024-01-17)
DX: S27.0XXA Traumatic pneumothorax, initial encounter (principal); E78.5 Hyperlipidemia, unspecified; I10 Essential (primary) hypertension; T79.7XXA Traumatic subcutaneous emphysema, initial encounter; I25.10 Atherosclerotic heart disease of native coronary artery without angina pectoris; K21.9 Gastro-esophageal reflux disease without esophagitis; W19.XXXA Unspecified fall, initial encounter; Y92.002 Bathroom of unspecified non-institutional (private) residence as the place of occurrence of the external cause; Z79.1 Long term (current) use of non-steroidal anti-inflammatories (NSAID); Z79.899 Other long term (current) drug therapy; R55 Syncope and collapse; Z85.830 Personal history of malignant neoplasm of bone; M19.90 Unspecified osteoarthritis, unspecified site; Z88.1 Allergy status to other antibiotic agents; Z88.2 Allergy status to sulfonamides
CPT/HCPCS: 71045; 71046; 71260; 74177; 80048; 80053; 83735; 85025; 85027; 96361; 96374; 96375; 96376; 99285